=== PATIENT | female | born 1955 | race Caucasian/White ===

== ENCOUNTER 2017-09-24 06:33 | Day surgery (SDC) | payer SELFPAY ==
[2017-09-19 16:42] VITALS: BMI 22.3
[2017-09-24] MEDS ORDERED: ERYTHROMYCIN 0.5% OPHTHALMIC OINTMENT 3.5 GM TUBE ONE (07:25)
[2017-09-24] MEDS ORDERED: TETRACAINE 0.5% OPHTH SOLN 2 ML BOTTLE ONE (07:25)
[2017-09-24] MEDS ORDERED: LIDOCAINE 1%/EPI 1:100000 (20 ML MULTI DOSE VIAL) ONE ×2 (07:25→07:58)
[2017-09-24] MEDS ORDERED: POVIDONE-IODINE 5% OPHTHALMIC PREP 30 ML SOLUTION ONE (07:25)
[2017-09-24] MEDS ORDERED: BUPIVACAINE HCL/PF 0.5% (5MG/ML) 10 ML VIAL ONE (07:25)
[2017-09-24] MEDS ORDERED: ceFAZolin SODIUM 1 GM VIAL ONE (07:38)
[2017-09-24] MEDS ORDERED: PROPOFOL 20 ML ONE ×6 (07:38→10:29)
[2017-09-24] MEDS ORDERED: MIDAZOLAM HCL 2 MG/2 ML SINGLE DOSE VIAL ONE ×2 (07:39→07:59)
[2017-09-24] MEDS ORDERED: ONDANSETRON 4 MG/2 ML VIAL ONE ×2 (09:01→11:26)
[2017-09-24] MEDS ORDERED: GUM MASTIC/STORAX/MSAL/ALCOHOL 1 DRP DROPSBTL MC ONE (10:58)
[2017-09-24] MEDS ORDERED: oxyCODONE HCL 5 MG TABLET PO PRN (11:16)
[2017-09-24] MEDS ORDERED: ONDANSETRON 4 MG/2 ML VIAL IVPUSH PRN (11:16)
[2017-09-24] MEDS ORDERED: PROMETHAZINE HCL 25 MG/1 ML VIAL IVPB PRN (11:16)
[2017-09-24] MEDS ORDERED: ONDANSETRON 4 MG/2 ML VIAL IVPUSH ONE (11:27)
[2017-09-24] MEDS ORDERED: LACTATED RINGERS SOLUTION 1,000 ML IV SCH (11:30)
[2017-09-24 12:19] VITALS: TEMP 99.3
--- NOTE | 2017-09-24 13:38 | OP ---
DATE OF OPERATION: 09/24/2017 PREOPERATIVE DIAGNOSES: 1. Fat prominence, bilateral lower lids. 2. Dermatochalasis, bilateral lower lids. 3. Dermatochalasis with nasal fat prominence, upper lids. POSTOPERATIVE DIAGNOSES: 1. Fat prominence, bilateral lower lids. 2. Dermatochalasis, bilateral lower lids. 3. Dermatochalasis with nasal fat prominence, upper lids. PROCEDURE: 1. Blepharoplasty, lower lids. 2. Blepharoplasty, upper lids. SURGEON: Elizabet Steven MD ANESTHESIA: Local with sedation. COMPLICATIONS: None. ESTIMATED BLOOD LOSS: 5-10 mL. DESCRIPTION OF PROCEDURE: Patient brought to the operating room, placed on the operating room table. Vital signs were monitored by Anesthesia. Tetracaine was placed in both eyes. Markings were performed on the upper and lower lids. The patient had been marked preoperatively for the lower lids temporal extent of the the upper lids. Then, further marking was carried out with caliper and forceps to determine the amount of skin that could be safely removed from the upper lids without causing lash eversion. This was marked symmetrically in both upper lids. The patient was given intravenous sedation. Timeout was performed. Then, 2% Xylocaine 1:100,000 epinephrine was injected transconjunctivally in nasal, central and temporal fat pockets down oval rim of both lower lids. Massage was applied for hemostasis. A small amount was injected throughout the upper lid ellipses as well. The patient was prepped and draped in usual sterile fashion exposing both eyes, and the following procedure was performed bilaterally. The lid crease incisions were incised with a 15 blade just through skin, as was the superior edge of the ellipse in the upper lid, this to protect the markings for later in the case. Attention was turned to the lower lids. The lower lids were distracted with an [employer] retractor. The globe was balloted up with an eyelid plate and then a transconjunctival incision was made, first temporally in both lower lids. Temporal fat pocket and deep fat pockets were exposed, and these were carefully conservatively sculpted. The nasal and central fat pockets were now opened by a transconjunctival incision. The fat was allowed to prolapse with gentle pressure on the globe, and the fat was meticulously sculpted until it was flush with the orbital rim with gentle pressure on the globe without creating excess concavity. Lids were at several times until they were determined to be with good contour and completion of the fat sculpting. The lower lids were now injected with 2% Xylocaine and 1:100,000 epinephrine subcutaneously after a line was marked along the subciliary portion of both lower lids. Then, this was now to approach the dermatochalasis. A subcutaneous plane was dissected with Yvette scissors after the subciliary line was incised with a 15 blade. This was carried down in a preorbicularis plane toward the orbital rim, freeing up the anterior lamella, skin and orbicularis attachments. An incision was made in the lateral orbicularis to identify the lateral canthal tendon. Each tendon was plicated to the orbital rim periosteum with a double-arm 5-0 Prolene suture which was buried in the orbicularis layer. Following this, plication allowed the lids to be tightened to correct the laxity without changing the angle of the outer canthi. Attention was now turned to the skin flap, which was developed in the orbicularis plane. Hemostasis was achieved with a [place] needle. Antibiotic irrigation was used through the case. The skin was then meticulously unfolded and draped over the subciliary incision. It was meticulously trimmed and the drape pressure on the lower cheeks was relieved and it was determined the amount of skin that could be safely removed without causing ectropion but correcting the excess dermatochalasis. Subciliary incisions were now closed with running 6-0 silk sutures, enclosing the excised skin in the lower lids. In the lateral left lower lid, the Prolene needed to be reburied under the orbicularis layer prior to closure. The upper lids were now approached. The previously incised primary area of skin was excised with Yvette scissors and a [place] needle was used for hemostasis and to create a row of cautery along the inferior edge of the incision to accentuate the crease. An orbicularis dissection was carried out nasally in both upper lids to identify the nasal fat pad, which was conservatively sculpted. Hemostasis was achieved. Antibiotic irrigation was performed. Three marking sutures - nasal, central and temporal - in both upper lids were now placed with slipknots and the patient was allowed to wake up and placed in the upright position to assess the amount of skin and the contour and symmetry. A tiny amount of additional skin was removed in the nasal portion, nasal central of the left upper lid. The patient was then placed in supine position. The superior skin incision was closed with running 6-0 nylon sutures, reinforced with one or two interrupted 6-0 nylon sutures where necessary, completing the upper lid blepharoplasty. It should be noted that 4-0 silk sutures were passed through the temporal eyelid margin during the dissection of the skin flap to keep the lids on stretch, and these sutures were not used as postoperative sutures. After the patient was cleaned, erythromycin was placed on the sutures of the lower lids, upper lids, and strip along the inferior edge of the eyelid in both eyes, and then the 4 sutures were secured to the forehead, placing the lower lid on gentle stitch with Mastisol and Steri-Strips. The patient was then taken to recovery room in stable condition. ELIZABET STEVEN M.D. [id number]
[2017-09-24 14:27] VITALS: BP 133/72; PULSE 62
== END 2017-09-24 13:00 | disposition home or self-care (01) ==
LOC: FASU 06:33
PROVIDERS: ATTEND Ophthalmology
PROC: 080N0ZZ Alteration of Right Upper Eyelid, Open Approach (ICD-10-PCS; 2017-09-24)
PROC: 080P0ZZ Alteration of Left Upper Eyelid, Open Approach (ICD-10-PCS; 2017-09-24)
PROC: 080Q0ZZ Alteration of Right Lower Eyelid, Open Approach (ICD-10-PCS; 2017-09-24)
PROC: 080R0ZZ Alteration of Left Lower Eyelid, Open Approach (ICD-10-PCS; principal; 2017-09-24 08:29)
DX: H02.835 Dermatochalasis of left lower eyelid (principal); H02.834 Dermatochalasis of left upper eyelid; H02.831 Dermatochalasis of right upper eyelid; H02.832 Dermatochalasis of right lower eyelid